=== PATIENT | female | born 1955 | race Hispanic/Latino ===

== ENCOUNTER 2017-11-19 21:41 | Observation (INO) | payer OTHER ==
[~2017-11-19] VITALS: Ht 170.2 cm; Wt 70.9 kg
[~2017-11-19 21:41] MED LIST: NAPROSYN500 MG PO
[2017-11-19 22:29] LABS: HEMATOCRIT 37.2 % (36.0-46.0); HEMOGLOBIN 12.7 G/DL (11.9-15.5); MCH 28.7 PG (29.0-34.0); MCHC 34.1 G/DL (30.0-36.0); PLATELET COUNT 368 K/uL (156-360); RBC DIS.WIDTH-CV 13.2 % (11.8-14.6); RBC DIS.WIDTH-SD 40.4 % (39-53); RED BLOOD COUNT 4.43 M/uL (3.80-5.20); WHITE BLOOD COUNT 11.7 K/uL (4.1-10.2)
[2017-11-19 22:39] LABS: CHLORIDE 101 mEq/L (99-109); SODIUM 138 mEq/L (136-147)
[2017-11-19 22:41] LABS: GLUCOSE 342 mg/dL (70-99)
[2017-11-19 22:45] LABS: CREATININE 1.1 mg/dL (0.6-1.3); GFR ESTIMATE (CALCULATED) 54 mL/min/
[2017-11-19 22:46] LABS: UREA NITROGEN (BUN) 17 mg/dL (9-23)
[2017-11-19 22:53] LABS: TROP-I INTERPRETATION NEGATIVE; TROPONIN-I < 0.01 ng/mL (0.0-0.30)
[2017-11-20] VITALS (7 sets, daily range): BP systolic 138–169; BP diastolic 66–79
[2017-11-20] MEDS ORDERED: COZAAR25 MG PO (00:56)
[2017-11-20] MEDS ORDERED: ADULT ASPIRIN R81 MG PO (00:56)
[2017-11-20] MEDS ORDERED: PRAVACHOL20 MG PO (00:56)
[2017-11-20] MEDS ORDERED: PRAVACHOL40 MG PO (00:56)
[2017-11-20] MEDS ORDERED: ATENOLOL50 MG PO (00:57)
[2017-11-20] MEDS ORDERED: HYDROCHLOROTH12.5 M3 PO (00:57)
[2017-11-20] MEDS ORDERED: METFORMIN HCL1000 MG PO (00:57)
[2017-11-20] MEDS ORDERED: GLIPIZIDE10 MG PO (00:57)
[2017-11-20 05:27] LABS: TROP-I INTERPRETATION NEGATIVE; TROPONIN-I 0.02 ng/mL (0.0-0.30)
[2017-11-20 05:31] LABS: HDL CHOLESTEROL 34 MG/DL (Desirable>=50); NON-HDL CHOLESTEROL 183 mg/dL (Desirable<160); TOTAL CHOLESTEROL 217 mg/dL (Desirable<200); TRIGLYCERIDES 492 MG/DL (Normal: <150)
[2017-11-20 11:26] LABS: TROP-I INTERPRETATION NEGATIVE; TROPONIN-I 0.02 ng/mL (0.0-0.30)
[2017-11-20] MEDS ORDERED: COZAAR50 MG PO (18:40)
[2017-11-21 00:12] VITALS: BP 123/61
[2017-11-21 04:28] VITALS: BP 176/82
[2017-11-21 07:40] VITALS: BP 180/79
[2017-11-21 09:47] VITALS: BP 133/80
== END 2017-11-21 10:38 | disposition home or self-care (01) ==
LOC: EME 21:41 → EXP 21:41 → EDOF 11-20 00:49 → 4SOUTH 11-20 00:49 → ENRESERV 11-20 00:52 → 4SOUTH 11-20 02:24 → ENPENDDIS 11-21 → 4SOUTH 11-21 10:38
PROVIDERS: Internal Medicine; Physician Assistant Medical
PROC: B246ZZZ Ultrasonography of Right and Left Heart (ICD-10-PCS; principal; 2017-11-20)
DX: R07.2 Precordial pain (principal); I16.0 Hypertensive urgency; E11.65 Type 2 diabetes mellitus with hyperglycemia; E11.22 Type 2 diabetes mellitus with diabetic chronic kidney disease; I12.9 Hypertensive chronic kidney disease with stage 1 through stage 4 chronic kidney disease, or unspecified chronic kidney disease; N18.3 Chronic kidney disease, stage 3 (moderate); Z90.710 Acquired absence of both cervix and uterus; Z80.0 Family history of malignant neoplasm of digestive organs; Z80.1 Family history of malignant neoplasm of trachea, bronchus and lung; Z79.82 Long term (current) use of aspirin; Z79.84 Long term (current) use of oral hypoglycemic drugs; I34.0 Nonrheumatic mitral (valve) insufficiency
CPT/HCPCS: 71046; 80048; 80061; 82948; 84484; 85027; 93005; 93306; 99281; 99285; G0378; J0360; J1650; J1815